=== PATIENT | female | born 1945 | race Caucasian/White ===

== ENCOUNTER 2024-08-30 06:20 | Outpatient (REF) | payer MEDICARE, SELFPAY ==
--- OUTSIDE RECORDS SUMMARY | 2024-08-30 06:37 | XMS_ITS | Encounter Summary ---
Author Organization [employer] Address [address] [facility] 7t [place] [address] Care Team Providers Care Chemical Etch Operator Name Role Phone Naida Umaña Primary Care Provider Un available Alexia Jackson Primary Care Provider Unavailabl e Inactive/Transferred Primary Care Provider Unava ilable Encounter Details Date Type Department Care Team (Latest Contact Info) Description 01/26/2021 Abstract [facility] CONVERSIONS Dental, Provider, DDS Social History Tobacco Use Types Packs/Day Years Used Date Smoking Tobacco: Never Assessed Comments Unknown Sex and Gender Information Value Date Recorded Sex Assigned at Female 02/03/2022 3:15 PM EST Legal Sex Female 5:36 PM EDT Gender Identity Female 02/03/2022 3:15 PM EST Sexual Orientation Choose not to disclose 2022 11:17 AM EDT documented as of this encounter Plan of Treatment Not on file documented as of this encounter Visit Diagnoses Not on filedocumented in this encounter Care Teams Chemical Etch Operator Relationship Specialty Start Date End Date Naida Umaña FNP PCP - General Family Medicine 02/04/22 10/17/22 Alexia Jackson PA PCP - General Family Medicine 10/18/22 05/23/23 Inactive/Transferred PCP - General 05/24/23 Jaleesa Naqvi Community Health Worker Case Management 10/15/22 documented as of this encounter
== END 2024-08-30 06:21 | disposition home or self-care (01) ==
LOC: HO.MMNH2L 06:20
PROVIDERS: Visit Provider Student in an Organized Health Care Education/Training Program
DX: Z13.89 Encounter for screening for other disorder (principal)

== ENCOUNTER 2024-09-24 06:09 | Outpatient (REF) | payer MEDICARE, SELFPAY ==
[2024-09-24 06:00] LABS: MANUAL DIFF FLAG NO
--- OUTSIDE RECORDS SUMMARY | 2024-09-24 06:11 | XMS_ITS | Clinical Summary ---
Author Organization [facility] Address [address] [address] Phone Care Team Providers Care Automotive Brake Technician Name Role Phone Unavailable Primary Care Provider Unavailabl e Social History Tobacco Use Types Packs/Day Years Used Date Smoking Tobacco: Never Assessed Education Answer Date Recorded Are you interested in more education? Not on brandon e 03/14/2024 Are you concerned about learning? Not on file 03/14/2024 No 03/14/2024 No 03/14/2024 Digital Access Answer Date Recorded No 03/14/2024 No 03/14/2024 Reliable internet access at home? Not on file 03/14/2024 Device with a working camera? Not on file Comments Unknown Sex and Gender Information Value Date Recorded Sex Assigned at Not on file Legal Sex Female 10:10 PM EDT Gender Identity Not on file Sexual Orientation Not on file Plan of Treatment Health Maintenance Due Date Last Done Comments Adult Td,Tdap Booster 1945 BLOOD PRESSURE 1945 DEPRESSION SCREENING 1955 PNEUMOCOCCAL VACCINES (50+ y ears) (1 of 1 - PCV) 05/27/1993 ZOSTER VACCINES (1 of 2) 05/27/1993 OSTEOPOROSIS SCREENING INITI AL (ONE-TIME) 05/27/2008 RSV VACCINE (1 - 1-dose 75+ series) 05/27/2018 COVID-19 VACCINE (2023-2 5 season) 2023 HEPATITIS A VACCINES Aged Out No long er eligible based on patient's age to complete this topic HIB VACCINES Aged Out No longer eligi ble based on patient's age to complete this topic MENINGOCOCCAL VACCINES (ACWY) Aged Out No longer eligible based on patient's age to complete this topic MENINGOCOCCAL VACCINES (B) Aged Out N o longer eligible based on patient's age to complete this topic Medical Devices Not on file Insurance MEDICARE PART A & [place] & B [employer] MEDIC[employer] PART A & [place] B [facility] Additional Source Comments The information contained in this document represents components of the legal health record. It is not the complete legal health record.[facility]
--- OUTSIDE RECORDS SUMMARY | 2024-09-24 06:11 | XMS_ITS | Encounter Summary ---
Author Organization [employer] Address [address] [facility] [address] [place] [address] Care Team Providers Care Data Warehouse Manager Name Role Phone Naida Umaña Primary Care [...] on filedocumented in this encounter Care Teams Data Warehouse Manager Relationship Specialty Start Date End Date Naida Umaña FNP PCP - General Family Medicine 02/04/22 10/17/22 Alexia Jackson PA PCP - General Family Medicine 10/18/22 05/23/23 Inactive/Transferred PCP - General 05/24/23 Jaleesa Naqvi Community Health Worker Case Management 10/15/22 documented as of this encounter
[2024-09-24 06:49] LABS: Hematocrit 35.5 % (37.0-47.0); Hemoglobin 11.3 g/dl (12.0-16.0); Imm Gran Abs Auto 0.12 X10*3/uL (0.00-0.03); Imm Gran Pct Auto 1.1 % (0.0-0.4); Lymphocytes Absolute Auto 1.8 X10*3/uL (1.2-4.9); Mean Corpuscular HGB Conc 31.8 g/dl (31.0-35.0); Mean Corpuscular Hemoglobin 31.2 pg (27.0-33.0); Mean Corpuscular Volume 98.1 fL (80.0-98.0); NRBC Abs Auto 0.000 X10*3/uL (0.0-0.012); NRBC Pct Auto 0.0 /100WBC (0.0-0.2); Platelet Count 221 X10*3/uL (160-400); Red Blood Count 3.62 X10*6/uL (4.20-5.50); White Blood Count 10.5 X10*3/uL (4.8-10.8)
[2024-09-24 07:24] LABS: Anion Gap 16 (12-20); Blood Urea Nitrogen 20 mg/dL (9-16); Calcium 9.2 mg/dL (8.4-10.2); Carbon Dioxide 23 mmol/L (22-29); Chloride 106 mmol/L (96-108); Estimated Glomerular Filt Rate > 60; Potassium 3.8 mmol/L (3.3-5.1); Sodium 141 mmol/L (135-145)
== END 2024-09-24 06:10 | disposition home or self-care (01) ==
LOC: HO.MMNH2L 06:09
PROVIDERS: Visit Provider Student in an Organized Health Care Education/Training Program
DX: S06.5X0A Traumatic subdural hemorrhage without loss of consciousness, initial encounter (principal)
CPT/HCPCS: 36415; 80048; 85025

== ENCOUNTER 2024-09-25 05:40 | Outpatient (REF) | payer MEDICARE, SELFPAY ==
--- OUTSIDE RECORDS SUMMARY | 2024-09-25 05:43 | XMS_ITS | Encounter Summary ---
Author Organization [employer] Address [address] [facility] [address]t [place] [address] Care Team Providers Care Mobile Homes Repairer Name Role Phone Naida Umaña Primary Care [...] on filedocumented in this encounter Care Teams Mobile Homes Repairer Relationship Specialty Start Date End Date Naida Umaña FNP PCP - General Family Medicine 02/04/22 10/17/22 Alexia Jackson PA PCP - General Family Medicine 10/18/22 05/23/23 Inactive/Transferred PCP - General 05/24/23 Jaleesa Naqvi Community Health Worker Case Management 10/15/22 documented as of this encounter
--- OUTSIDE RECORDS SUMMARY | 2024-09-25 05:43 | XMS_ITS | Clinical Summary ---
Author Organization [facility] Address [address] [address] Phone Care Team Providers Care Service Loss Control Consultant Name Role Phone Unavailable Primary Care Provider [...] [place] PART A & B [employer] MEDICARE PART A & [place] & [place] & B [facility] Additional Source Comments The information contained in this document represents components of the legal health record. It is not the complete legal health record.[facility]
[2024-09-25 07:02] LABS: Appearance Urine Clear; Glucose Urine UA >=1000 mg/dL (Negative); PH 5.5 (5.0-9.0); Specific Gravity - Urine 1.020 (1.005-1.025); UMIC TRIGGER UA YES
== END 2024-09-25 05:41 | disposition home or self-care (01) ==
LOC: HO.MMNH2L 05:40
PROVIDERS: Visit Provider Student in an Organized Health Care Education/Training Program
DX: R45.1 Restlessness and agitation (principal); Z87.440 Personal history of urinary (tract) infections; R82.90 Unspecified abnormal findings in urine
CPT/HCPCS: 81001; 81003; 87086

== ENCOUNTER 2024-10-01 06:35 | Outpatient (REF) | payer MEDICARE, SELFPAY ==
[2024-10-01 05:58] LABS: MANUAL DIFF FLAG NO
--- OUTSIDE RECORDS SUMMARY | 2024-10-01 06:38 | XMS_ITS | Clinical Summary ---
Author Organization [facility] Address [address] [address] Phone Care Team Providers Care Internet Webmaster Name Role Phone Unavailable Primary Care Provider [...] B [place] PART A & B NAME'S Online Department [employer] MEDICARE PART A & [place] & [place] & B [facility] Additional Source Comments The information contained in this document represents components of the legal health record. It is not the complete legal health record.[facility]
--- OUTSIDE RECORDS SUMMARY | 2024-10-01 06:38 | XMS_ITS | Encounter Summary ---
Author Organization [employer] Address [address] [facility] 7t [place] [address] Care Team Providers Care Windows Desktop Support Name Role Phone Naida Umaña Primary Care [...] on filedocumented in this encounter Care Teams Windows Desktop Support Relationship Specialty Start Date End Date Naida Umaña FNP PCP - General Family Medicine 02/04/22 10/17/22 Alexia Jackson PA PCP - General Family Medicine 10/18/22 05/23/23 Inactive/Transferred PCP - General 05/24/23 Jaleesa Naqvi Community Health Worker Case Management 10/15/22 documented as of this encounter
[2024-10-01 06:54] LABS: Hematocrit 35.2 % (37.0-47.0); Hemoglobin 11.2 g/dl (12.0-16.0); Imm Gran Abs Auto 0.13 X10*3/uL (0.00-0.03); Imm Gran Pct Auto 1.2 % (0.0-0.4); Lymphocytes Absolute Auto 1.9 X10*3/uL (1.2-4.9); Mean Corpuscular HGB Conc 31.8 g/dl (31.0-35.0); Mean Corpuscular Hemoglobin 30.9 pg (27.0-33.0); Mean Corpuscular Volume 97.0 fL (80.0-98.0); NRBC Abs Auto 0.000 X10*3/uL (0.0-0.012); NRBC Pct Auto 0.0 /100WBC (0.0-0.2); Platelet Count 274 X10*3/uL (160-400); Red Blood Count 3.63 X10*6/uL (4.20-5.50); White Blood Count 11.2 X10*3/uL (4.8-10.8)
[2024-10-01 06:56] LABS: Anion Gap 16 (12-20); Blood Urea Nitrogen 9 mg/dL (9-16); Calcium 8.8 mg/dL (8.4-10.2); Carbon Dioxide 22 mmol/L (22-29); Chloride 102 mmol/L (96-108); Estimated Glomerular Filt Rate > 60; Potassium 4.4 mmol/L (3.3-5.1); Sodium 136 mmol/L (135-145)
== END 2024-10-01 06:36 | disposition home or self-care (01) ==
LOC: HO.MMNH2L 06:35
PROVIDERS: Visit Provider Student in an Organized Health Care Education/Training Program
DX: Z02.2 Encounter for examination for admission to residential institution (principal); S06.5XAD Traumatic subdural hemorrhage with loss of consciousness status unknown, subsequent encounter
CPT/HCPCS: 36415; 80048; 85025

== ENCOUNTER 2024-10-03 07:04 | Outpatient (REF) | payer MEDICARE, SELFPAY ==
--- OUTSIDE RECORDS SUMMARY | 2024-10-03 07:06 | XMS_ITS | Clinical Summary ---
Author Organization [facility] Address [address] [address] Phone Care Team Providers Care Fixed Interest Dealer Name Role Phone Unavailable Primary Care Provider [...] B [place] PART [place] & B [employer] MEDIC[employer] PART A & [place] & [place] & [place] & B [facility] Additional Source Comments The information contained in this document represents components of the legal health record. It is not the complete legal health record.[facility]
--- OUTSIDE RECORDS SUMMARY | 2024-10-03 07:06 | XMS_ITS | Encounter Summary ---
Author Organization [employer] Address [address] [facility] 7t [place] [address] Care Team Providers Care [place] House Worker Name Role Phone Naida Umaña Primary Care [...] on filedocumented in this encounter Care Teams [place] House Worker Relationship Specialty Start Date End Date Naida Umaña FNP PCP - General Family Medicine 02/04/22 10/17/22 Alexia Jackson PA PCP - General Family Medicine 10/18/22 05/23/23 Inactive/Transferred PCP - General 05/24/23 Jaleesa Naqvi Community Health Worker Case Management 10/15/22 documented as of this encounter
--- OUTSIDE RECORDS SUMMARY | 2024-10-03 07:06 | XMS_ITS | Encounter Summary ---
Author Organization [employer] Address [address] [facility] 7t [place] [address] Care Team Providers Care Information Technology Internship Name Role Phone Naida Umaña Primary Care Provider Un available Alexia Jackson Primary Care Provider Unavailabl e Inactive/Transferred Primary Care Provider Unava ilable Encounter Details Date Type Department Care Team (Latest Contact Info) Description 03/06/2020 Abstract [facility] CONVERSIONS Dental, Provider, DDS Social [...] on filedocumented in this encounter Care Teams Information Technology Internship Relationship Specialty Start Date End Date Naida Umaña FNP PCP - General Family Medicine 02/04/22 10/17/22 Alexia Jackson PA PCP - General Family Medicine 10/18/22 05/23/23 Inactive/Transferred PCP - General 05/24/23 Jaleesa Naqvi Community Health Worker Case Management 10/15/22 documented as of this encounter
--- OUTSIDE RECORDS SUMMARY | 2024-10-03 07:06 | XMS_ITS | Encounter Summary ---
Author Organization [employer] Address [address] [facility] 7t [place] [address] Care Team Providers Care Sheriff Officer Name Role Phone Naida Umaña Primary Care Provider Un available Alexia Jackson Primary Care Provider Unavailabl e Inactive/Transferred Primary Care Provider Unava ilable Encounter Details Date Type Department Care Team (Latest Contact Info) Description 05/01/2018 [facility] CONVERSIONS Dental, Provider, DDS Social [...] on filedocumented in this encounter Care Teams Sheriff Officer Relationship Specialty Start Date End Date Naida Umaña FNP PCP - General Family Medicine 02/04/22 10/17/22 Alexia Jackson PA PCP - General Family Medicine 10/18/22 05/23/23 Inactive/Transferred PCP - General 05/24/23 Jaleesa Naqvi Community Health Worker Case Management 10/15/22 documented as of this encounter
--- OUTSIDE RECORDS SUMMARY | 2024-10-03 07:06 | XMS_ITS | Encounter Summary ---
Author Organization [employer] Address [address] [facility] 7t [place] [address] Care Team Providers Care District Manager Name Role Phone Naida Umaña Primary Care Provider Un available Alexia Jackson Primary Care Provider Unavailabl e Inactive/Transferred Primary Care Provider Unava ilable Encounter Details Date Type Department Care Team (Latest Contact Info) Description 01/08/2019 Abstract [facility] CONVERSIONS Dental, Provider, DDS Social [...] on filedocumented in this encounter Care Teams District Manager Relationship Specialty Start Date End Date Naida Umaña FNP PCP - General Family Medicine 02/04/22 10/17/22 Alexia Jackson PA PCP - General Family Medicine 10/18/22 05/23/23 Inactive/Transferred PCP - General 05/24/23 Jaleesa Naqvi Community Health Worker Case Management 10/15/22 documented as of this encounter
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
[2024-10-03 08:17] LABS: Appearance Urine Cloudy; Glucose Urine UA >=1000 mg/dL (Negative); PH 5.0 (5.0-9.0); Specific Gravity - Urine >= 1.030 (1.005-1.025); UMIC TRIGGER UA YES
== END 2024-10-03 07:05 | disposition home or self-care (01) ==
LOC: HO.MMNH2L 07:04
PROVIDERS: Visit Provider Physician Assistant Medical
DX: S02.19XD Other fracture of base of skull, subsequent encounter for fracture with routine healing (principal)
CPT/HCPCS: 81001; 81003; 87086; 87088; 87186

== ENCOUNTER 2024-10-09 06:15 | Outpatient (REF) | payer MEDICARE, SELFPAY ==
[2024-10-09 06:09] LABS: MANUAL DIFF FLAG NO
--- OUTSIDE RECORDS SUMMARY | 2024-10-09 06:18 | XMS_ITS | Encounter Summary ---
Author Organization [employer] Address [address] [facility] 7t [place] [address] Care Team Providers Care Counter Former Name Role Phone Naida Umaña Primary Care [...] on filedocumented in this encounter Care Teams Counter Former Relationship Specialty Start Date End Date Naida Umaña FNP PCP - General Family Medicine 02/04/22 10/17/22 Alexia Jackson PA PCP - General Family Medicine 10/18/22 05/23/23 Inactive/Transferred PCP - General 05/24/23 Jaleesa Naqvi Community Health Worker Case Management 10/15/22 documented as of this encounter
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
--- OUTSIDE RECORDS SUMMARY | 2024-10-09 06:18 | XMS_ITS | Encounter Summary ---
Author Organization [employer] Address [address] [facility] 7t [place] [address] Care Team Providers Care Senior It Business Analyst Name Role Phone Naida Umaña Primary Care [...] on filedocumented in this encounter Care Teams Senior It Business Analyst Relationship Specialty Start Date End Date Naida Umaña FNP PCP - General Family Medicine 02/04/22 10/17/22 Alexia Jackson PA PCP - General Family Medicine 10/18/22 05/23/23 Inactive/Transferred PCP - General 05/24/23 Jaleesa Naqvi Community Health Worker Case Management 10/15/22 documented as of this encounter
--- OUTSIDE RECORDS SUMMARY | 2024-10-09 06:18 | XMS_ITS | Encounter Summary ---
Author Organization [employer] Address [address] [facility] [address] [place] [address] Care Team Providers Care Machine Brush Maker Name Role Phone aNida Umaña Primary Care Provider Un available Alexia [...] on filedocumented in this encounter Care Teams Machine Brush Maker Relationship Specialty Start Date End Date Naida Umaña FNP PCP - General Family Medicine 02/04/22 10/17/22 Alexia Jackson PA PCP - General Family Medicine 10/18/22 05/23/23 Inactive/Transferred PCP - General 05/24/23 Jaleesa Naqvi Community Health Worker Case Management 10/15/22 documented as of this encounter
--- OUTSIDE RECORDS SUMMARY | 2024-10-09 06:18 | XMS_ITS | Clinical Summary ---
Author Organization [facility] Address [address] [address] Phone Care Team Providers Care Search Planner Name Role Phone Unavailable Primary Care Provider [...] VACCINE (1 - 1-dose 75+ series) 05/27/2018 INFLUENZA VACCINE (#1) 2024 COVID-19 VACCINE (2023-2 5 season) 2024 HEPATITIS A VACCINES Aged Out No long [...] file Insurance MEDICARE PART A & B [employer] MED[facility] PART A & [place] & [place] PART A & B [employer] MED[facility] PART A & [place] PART A & B [employer] MEDICARE PART A & B [employer] MEDICARE PART A & B [facility] Additional Source Comments The information contained in this document represents components of the legal health record. It is not the complete legal health record.[facility]
--- OUTSIDE RECORDS SUMMARY | 2024-10-09 06:18 | XMS_ITS | Encounter Summary ---
Author Organization [employer] Address [address] [facility] [address] [place] [address] Care Team Providers Care Fleet Salesperson Name Role Phone Naida Umaña Primary Care [...] on filedocumented in this encounter Care Teams Fleet Salesperson Relationship Specialty Start Date End Date Naida Umaña FNP PCP - General Family Medicine 02/04/22 10/17/22 Alexia Jackson PA PCP - General Family Medicine 10/18/22 05/23/23 Inactive/Transferred PCP - General 05/24/23 Jaleesa Naqvi Community Health Worker Case Management 10/15/22 documented as of this encounter
[2024-10-09 06:29] LABS: Hematocrit 35.2 % (37.0-47.0); Hemoglobin 11.1 g/dl (12.0-16.0); Imm Gran Abs Auto 0.06 X10*3/uL (0.00-0.03); Imm Gran Pct Auto 0.7 % (0.0-0.4); Lymphocytes Absolute Auto 2.0 X10*3/uL (1.2-4.9); Mean Corpuscular HGB Conc 31.5 g/dl (31.0-35.0); Mean Corpuscular Hemoglobin 30.2 pg (27.0-33.0); Mean Corpuscular Volume 95.9 fL (80.0-98.0); NRBC Abs Auto 0.000 X10*3/uL (0.0-0.012); NRBC Pct Auto 0.0 /100WBC (0.0-0.2); Platelet Count 220 X10*3/uL (160-400); Red Blood Count 3.67 X10*6/uL (4.20-5.50); White Blood Count 8.5 X10*3/uL (4.8-10.8)
[2024-10-09 06:52] LABS: Anion Gap 14 (12-20); Blood Urea Nitrogen 13 mg/dL (9-16); Calcium 8.9 mg/dL (8.4-10.2); Carbon Dioxide 25 mmol/L (22-29); Chloride 103 mmol/L (96-108); Estimated Glomerular Filt Rate > 60; Potassium 4.0 mmol/L (3.3-5.1); Sodium 138 mmol/L (135-145)
== END 2024-10-09 06:16 | disposition home or self-care (01) ==
LOC: HO.MMNH2L 06:15
PROVIDERS: Visit Provider Student in an Organized Health Care Education/Training Program
DX: S06.5X0A Traumatic subdural hemorrhage without loss of consciousness, initial encounter (principal)
CPT/HCPCS: 36415; 80048; 85025

== ENCOUNTER 2024-10-15 06:11 | Outpatient (REF) | payer MEDICARE, SELFPAY ==
[2024-10-15 05:57] LABS: MANUAL DIFF FLAG NO
--- OUTSIDE RECORDS SUMMARY | 2024-10-15 06:18 | XMS_ITS | Encounter Summary ---
Author Organization [employer] Address [address] [facility] 7[address] [place] [address] Care Team Providers Care Misdraw Hand Name Role Phone Naida Umaña Primary Care [...] on filedocumented in this encounter Care Teams Misdraw Hand Relationship Specialty Start Date End Date Naida Umaña FNP PCP - General Family Medicine 02/04/22 10/17/22 Alexia Jackson PA PCP - General Family Medicine 10/18/22 05/23/23 Inactive/Transferred PCP - General 05/24/23 Jaleesa Naqvi Community Health Worker Case Management 10/15/22 documented as of this encounter
--- OUTSIDE RECORDS SUMMARY | 2024-10-15 06:18 | XMS_ITS | Encounter Summary ---
Author Organization [employer] Address [address] [facility] [address] [place] [address] Care Team Providers Care Yard Stocker Name Role Phone Naida Umaña Primary Care [...] on filedocumented in this encounter Care Teams Yard Stocker Relationship Specialty Start Date End Date Naida Umaña FNP PCP - General Family Medicine 02/04/22 10/17/22 Alexia Jackson PA PCP - General Family Medicine 10/18/22 05/23/23 Inactive/Transferred PCP - General 05/24/23 Jaleesa Naqvi Community Health Worker Case Management 10/15/22 documented as of this encounter
--- OUTSIDE RECORDS SUMMARY | 2024-10-15 06:18 | XMS_ITS | Clinical Summary ---
Author Organization [facility] Address [address] [address] Phone Care Team Providers Care Insurance Marketing Rep Name Role Phone Unavailable Primary Care Provider [...] file Insurance MEDICARE PART A & B [employer] MED[employer] PART A & [place] & B [employer] MEDICARE PART A & [place] PART A & B [employer] MEDICARE PART A & B [employer] MEDICARE PART A & B [facility] Additional Source Comments The information contained in this document represents components of the legal health record. It is not the complete legal health record.[facility]
--- OUTSIDE RECORDS SUMMARY | 2024-10-15 06:18 | XMS_ITS | Encounter Summary ---
Author Organization [employer] Address [address] [facility] 7t [place] [address] Care Team Providers Care Stove Fitter Name Role Phone Naida Umaña Primary Care [...] on filedocumented in this encounter Care Teams Stove Fitter Relationship Specialty Start Date End Date Naida Umaña FNP PCP - General Family Medicine 02/04/22 10/17/22 Alexia Jackson PA PCP - General Family Medicine 10/18/22 05/23/23 Inactive/Transferred PCP - General 05/24/23 Jaleesa Naqvi Community Health Worker Case Management 10/15/22 documented as of this encounter
--- OUTSIDE RECORDS SUMMARY | 2024-10-15 06:18 | XMS_ITS | Clinical Summary ---
Author Organization [employer] Address 75 [facility] 7t [place] [address] Care Team Providers Care Multi Operation Machine Operator Name Role Phone Inactive/Transferred Primary Care Provider Unava ilable Allergies No known active allergies Medications Calcium-Vitamin D-Vitamin K (Calcium + D) 500-1000-40 MG-UNT-MCG chewable tablet Orally Acti ve nystatin (Mycostatin) 282081 UNIT/GM powderIndications: Intertrigo apply 1 application Externally Twice a day for 14 days 30 g 2 02/05/20 22 Active glucose blood test stripIndications:T ype 2 diabetes mellitus with hyperglycemia, unspecified whether shelter insulin use ([facility]) 1 each by Other route 2 [...] hyperglycemia, without long-term current use of insulin ([facility]) TAKE 1 TABLET BY MOUTH TWICE [...] was a big deal. I contacted the police service technician who was not available to assist us if there were any further incidents but he was not able to come and asked me to call the state police. I called dispatch and they sent a real estate administrator to our facility. HR was able to [...] & Plan (11/02/2022 12:06 PM EDT): Under time clock repairer care of her brother and sister in law at their home for >20y. Pt is unable to care for herself at all. She does have her own bedroom and bathroom, side by side. She attends an adult day care [id number] [id number]. Her ELMA states the pt has been [...] at appt today. The brother and primary ceramist would not discuss her medications with myself [...] Moderna Covid-19 Vaccine 12+ 01/08/2021,04/10/19 21,03/12/2020 Novel [id number], all formulations 03/19/2009 PPD Test 12/19/2015,05/14/2009 Pfizer [...] 07/02/19 23, 03/06/2020, 01/08/2019, Additional history exists SDOH Screening 10/22/2023 10/21/2022 COVID-19 Vaccine ( season) 2024 02/04/2022, 01/08/2021, 04/09/2020, Additional history exists Influenza Vaccine (#1) 2024 2, 12/07/2019, 12/03/2017, [...] 2 diabetes mellitus with hyperglycemia, unspecified whether ocean transportation intermediary insulin use (CMS/HCC) Other specified diabetes mellitus with unspecified complications ([facility]) ALBUMIN, RANDOM URINE W/CREATININE Routine 10/16/2021 [...] specimen / Unknown 06/07/2022 4:25 PM EDT [employer] [facility] POINT OF CARE TEST ENTER/ EDIT ORDERABLES Final Result * -Microalbumin, Urine (10/16/2021 8:46 AM EDT) Microalbumin Urine <12.0 (<20) MG/L [facility] Comment: The urine microalbumin test is designed to monitor renal function. When screening for Bence Acosta proteinuria, urine electrophoresis is recommended. Microalb/Creat Ratio Unable to calculate (0-20) MG/GM [facility] Creatinine, Urine 66.0 MG/DL [facility] 10/16/2021 8:46 AM EDT [email or web address] [facility] LAB URINE ORDERABLES Ethel l Result [facility] [address] * Lipid Panel, Standard (10/15/2021) Triglycerides 101 40 - 160 mg/dL Cholesterol 136 0 - 200 mg/dL HDL Cholesterol 53 35 - 70 mg/dL LDL Cholesterol 63 mg/dL Blood Venous blood specimen / Unknown [facility] Provider LAB BLOOD ORDERABLES Ethel l Result from Last 3 Months or Most Recently Relevant to Health Maintenance Insurance MEDICARE [facility] STANDARD DENTAL-[facility] MEDICAID STAND ADULT Care Teams Multi Operation Machine Operator Relationship Specialty Start Date End Date Inactive/Transferred PCP - General 05/24/23 Jaleesa Naqvi Community Health Worker Case Management 10/15/22
--- OUTSIDE RECORDS SUMMARY | 2024-10-15 06:18 | XMS_ITS | Encounter Summary ---
Author Organization [employer] Address [address] [facility] [address]t [place] [address] Care Team Providers Care Indirect Sales Representative Name Role Phone Naida Umaña Primary Care [...] on filedocumented in this encounter Care Teams Indirect Sales Representative Relationship Specialty Start Date End Date Naida Umaña FNP PCP - General Family Medicine 02/04/22 10/17/22 Alexia Jackson PA PCP - General Family Medicine 10/18/22 05/23/23 Inactive/Transferred PCP - General 05/24/23 Jaleesa Naqvi Community Health Worker Case Management 10/15/22 documented as of this encounter
[2024-10-15 06:55] LABS: Anion Gap 16 (12-20); Blood Urea Nitrogen 16 mg/dL (9-16); Calcium 9.2 mg/dL (8.4-10.2); Carbon Dioxide 26 mmol/L (22-29); Chloride 105 mmol/L (96-108); Estimated Glomerular Filt Rate > 60; Potassium 4.0 mmol/L (3.3-5.1); Sodium 143 mmol/L (135-145)
[2024-10-15 06:56] LABS: Hematocrit 34.9 % (37.0-47.0); Hemoglobin 11.2 g/dl (12.0-16.0); Imm Gran Abs Auto 0.10 X10*3/uL (0.00-0.03); Imm Gran Pct Auto 0.8 % (0.0-0.4); Lymphocytes Absolute Auto 1.9 X10*3/uL (1.2-4.9); Mean Corpuscular HGB Conc 32.1 g/dl (31.0-35.0); Mean Corpuscular Hemoglobin 30.7 pg (27.0-33.0); Mean Corpuscular Volume 95.6 fL (80.0-98.0); NRBC Abs Auto 0.000 X10*3/uL (0.0-0.012); NRBC Pct Auto 0.0 /100WBC (0.0-0.2); Platelet Count 265 X10*3/uL (160-400); Red Blood Count 3.65 X10*6/uL (4.20-5.50); White Blood Count 12.9 X10*3/uL (4.8-10.8)
== END 2024-10-15 06:12 | disposition home or self-care (01) ==
LOC: HO.MMNH2L 06:11
PROVIDERS: Visit Provider Student in an Organized Health Care Education/Training Program
DX: S06.5X0A Traumatic subdural hemorrhage without loss of consciousness, initial encounter (principal)
CPT/HCPCS: 36415; 80048; 85025

== ENCOUNTER 2024-10-22 05:44 | Outpatient (REF) | payer MEDICARE, SELFPAY ==
[2024-10-22 05:39] LABS: MANUAL DIFF FLAG NO
--- OUTSIDE RECORDS SUMMARY | 2024-10-22 05:46 | XMS_ITS | Encounter Summary ---
Author Organization [email or web address] Address [address] [facility] 7t [place] [address] Care Team Providers Care Childcare Attendant Name Role Phone Naida Umaña Primary Care [...] on filedocumented in this encounter Care Teams Childcare Attendant Relationship Specialty Start Date End Date Naida Umaña FNP PCP - General Family Medicine 02/04/22 10/17/22 Alexia Jackson PA PCP - General Family Medicine 10/18/22 05/23/23 Inactive/Transferred PCP - General 05/24/23 Jaleesa Naqvi Community Health Worker Case Management 10/15/22 documented as of this encounter
--- OUTSIDE RECORDS SUMMARY | 2024-10-22 05:46 | XMS_ITS | Encounter Summary ---
Author Organization [employer] Address [address] [facility] [address] [place] [address] Care Team Providers Care Direct Marketing Manager Name Role Phone Naida Umaña Primary [...] on filedocumented in this encounter Care Teams Direct Marketing Manager Relationship Specialty Start Date End Date Naida Umaña FNP PCP - General Family Medicine 02/04/22 10/17/22 Alexia Jackson PA PCP - General Family Medicine 10/18/22 05/23/23 Inactive/Transferred PCP - General 05/24/23 Jaleesa Naqvi Community Health Worker Case Management 10/15/22 documented as of this encounter
--- OUTSIDE RECORDS SUMMARY | 2024-10-22 05:46 | XMS_ITS | Encounter Summary ---
Author Organization [employer] Address [address] [facility] 7t [place] [address] Care Team Providers Care Mowing Machine Operator Name Role Phone Naida Umaña Primary [...] on filedocumented in this encounter Care Teams Mowing Machine Operator Relationship Specialty Start Date End Date Naida Umaña FNP PCP - General Family Medicine 02/04/22 10/17/22 Alexia Jackson PA PCP - General Family Medicine 10/18/22 05/23/23 Inactive/Transferred PCP - General 05/24/23 Jaleesa Naqvi Community Health Worker Case Management 10/15/22 documented as of this encounter
--- OUTSIDE RECORDS SUMMARY | 2024-10-22 05:46 | XMS_ITS | Clinical Summary ---
Author Organization [facility] Address [address] [address] Phone Care Team Providers Care Diabetes Manager Name Role Phone Unavailable Primary Care Provider [...] file Insurance MEDICARE PART A & B [employer] MEDICARE PART A & B [place] PART A & B [employer] MEDICARE PART A & [place] MED[place] PART A & B [employer] MEDICARE PART A & B [employer] MEDICARE PART A & B [facility] Additional Source Comments The information contained in this document represents components of the legal health record. It is not the complete legal health record.[facility]
--- OUTSIDE RECORDS SUMMARY | 2024-10-22 05:46 | XMS_ITS | Encounter Summary ---
Author Organization [employer] Address [address] [facility] 7t [place] [address] Care Team Providers Care Retail Route Supervisor Name Role Phone Naida Umaña Primary Care [...] on filedocumented in this encounter Care Teams Retail Route Supervisor Relationship Specialty Start Date End Date Naida Umaña FNP PCP - General Family Medicine 02/04/22 10/17/22 Alexia Jackson PA PCP - General Family Medicine 10/18/22 05/23/23 Inactive/Transferred PCP - General 05/24/23 Jaleesa Naqvi Community Health Worker Case Management 10/15/22 documented as of this encounter
--- OUTSIDE RECORDS SUMMARY | 2024-10-22 05:46 | XMS_ITS | Clinical Summary ---
Author Organization [employer] Address [address] [facility] 7t [place] [address] Care Team Providers Care Exhaust And Muffler Repairer Name Role Phone Inactive/Transferred Primary Care Provider Unava ilable Allergies No known active allergies Medications Calcium-Vitamin D-Vitamin K (Calcium + D) 500-1000-40 MG-UNT-MCG chewable tablet Orally Acti ve nystatin (Mycostatin) 798976 UNIT/GM powderIndications: Intertrigo apply 1 application Externally Twice a day for 14 days 30 g 2 02/05/20 22 Active glucose blood test stripIndications:T ype 2 diabetes mellitus with hyperglycemia, unspecified whether director of culture insulin use ([facility]) 1 each by Other route [...] hyperglycemia, without long-term current use of insulin ([facility]) TAKE 1 TABLET BY MOUTH [...] was a big deal. I contacted the chief executive or managing director who was not available to assist us if there were any further incidents but he was not able to come and asked me to call the state police. I called dispatch and they sent a manager estate to our facility. HR was able to [...] & Plan (11/02/2022 12:06 PM EDT): Under signal timer care of her brother and sister in law at their home for >20y. Pt is unable to care for herself at all. She does have her own bedroom and bathroom, side by side. She attends an adult day care [id number] [id number]. Her ELMA states the pt has been [...] at appt today. The brother and primary powertrain control systems engineer would not discuss her medications with myself [...] Moderna Covid-19 Vaccine 12+ 01/08/2021,04/10/19 21,03/12/2020 Novel [id number]-[id number], all formulations 03/19/2009 PPD Test 12/19/2015,05/14/2009 Pfizer [...] 2 diabetes mellitus with hyperglycemia, unspecified whether nursing home insulin use (CMS/HCC) Other specified diabetes mellitus with unspecified complications ([facility]) ALBUMIN, RANDOM URINE W/CREATININE Routine [...] specimen / Unknown 06/07/2022 4:25 PM EDT [employer] [facility] POINT OF CARE TEST ENTER/ EDIT [...] [facility] 10/16/2021 8:46 AM EDT [employer] [facility] LAB URINE ORDERABLES Ethel l Result [facility] [address] * Lipid Panel, Standard (10/15/2021) Triglycerides 101 40 - 160 mg/dL Cholesterol 136 0 - 200 mg/dL HDL Cholesterol 53 35 - 70 mg/dL LDL Cholesterol 63 mg/dL Blood Venous blood specimen / Unknown [facility] Provider LAB BLOOD ORDERABLES Ethel l Result from Last 3 Months or Most Recently Relevant to Health Maintenance Insurance MEDICARE [facility] STANDARD DENTAL-[facility] MEDICAID STAND ADULT Care Teams Exhaust And Muffler Repairer Relationship Specialty Start Date End Date Inactive/Transferred PCP - General 05/24/23 Jaleesa Naqvi Community Health Worker Case Management 10/15/22
[2024-10-22 06:28] LABS: Hematocrit 36.6 % (37.0-47.0); Hemoglobin 11.7 g/dl (12.0-16.0); Imm Gran Abs Auto 0.12 X10*3/uL (0.00-0.03); Imm Gran Pct Auto 1.0 % (0.0-0.4); Lymphocytes Absolute Auto 1.8 X10*3/uL (1.2-4.9); Mean Corpuscular HGB Conc 32.0 g/dl (31.0-35.0); Mean Corpuscular Hemoglobin 30.2 pg (27.0-33.0); Mean Corpuscular Volume 94.6 fL (80.0-98.0); NRBC Abs Auto 0.000 X10*3/uL (0.0-0.012); NRBC Pct Auto 0.0 /100WBC (0.0-0.2); Platelet Count 327 X10*3/uL (160-400); Red Blood Count 3.87 X10*6/uL (4.20-5.50); White Blood Count 12.4 X10*3/uL (4.8-10.8)
[2024-10-22 07:00] LABS: Anion Gap 13 (12-20); Blood Urea Nitrogen 13 mg/dL (9-16); Calcium 8.8 mg/dL (8.4-10.2); Carbon Dioxide 29 mmol/L (22-29); Chloride 99 mmol/L (96-108); Estimated Glomerular Filt Rate > 60; Potassium 3.5 mmol/L (3.3-5.1); Sodium 137 mmol/L (135-145)
== END 2024-10-22 05:45 | disposition home or self-care (01) ==
LOC: HO.MMNH2L 05:44
PROVIDERS: Visit Provider Student in an Organized Health Care Education/Training Program
DX: S06.5X0A Traumatic subdural hemorrhage without loss of consciousness, initial encounter (principal)
CPT/HCPCS: 36415; 80048; 85025

== ENCOUNTER 2024-10-29 07:05 | Outpatient (REF) | payer MEDICARE, SELFPAY ==
--- OUTSIDE RECORDS SUMMARY | 2024-10-29 07:07 | XMS_ITS | Encounter Summary ---
Author Organization [employer] Address [address] [facility] 7t [place] [address] Care Team Providers Care Background Check Coordinator Name Role Phone Naida Umaña Primary Care Provider Un available Alxeia Jackson Primary Care Provider Unavailabl e Inactive/Transferred [...] on filedocumented in this encounter Care Teams Background Check Coordinator Relationship Specialty Start Date End Date Naida Umaña FNP PCP - General Family Medicine 02/04/22 10/17/22 Alexia Jackson PA PCP - General Family Medicine 10/18/22 05/23/23 Inactive/Transferred PCP - General 05/24/23 Jaleesa Naqvi Community Health Worker Case Management 10/15/22 documented as of this encounter
--- OUTSIDE RECORDS SUMMARY | 2024-10-29 07:07 | XMS_ITS | Encounter Summary ---
Author Organization [employer] Address [address] [facility] 7t [place] [address] Care Team Providers Care Tumbler Operator Name Role Phone Naida Umaña Primary [...] on filedocumented in this encounter Care Teams Tumbler Operator Relationship Specialty Start Date End Date Naida Umaña FNP PCP - General Family Medicine 02/04/22 10/17/22 Alexia Jackson PA PCP - General Family Medicine 10/18/22 05/23/23 Inactive/Transferred PCP - General 05/24/23 Jaleesa Naqvi Community Health Worker Case Management 10/15/22 documented as of this encounter
--- OUTSIDE RECORDS SUMMARY | 2024-10-29 07:07 | XMS_ITS | Encounter Summary ---
Author Organization [employer] Address [address] [facility] 7t [place] [address] Care Team Providers Care Outside Rigger Name Role Phone Naida Umaña Primary Care [...] on filedocumented in this encounter Care Teams Outside Rigger Relationship Specialty Start Date End Date Naida Umaña FNP PCP - General Family Medicine 02/04/22 10/17/22 Alexia Jackson PA PCP - General Family Medicine 10/18/22 05/23/23 Inactive/Transferred PCP - General 05/24/23 Jaleesa Naqvi Community Health Worker Case Management 10/15/22 documented as of this encounter
--- OUTSIDE RECORDS SUMMARY | 2024-10-29 07:07 | XMS_ITS | Clinical Summary ---
Author Organization [facility] Address [address] [address] Phone Care Team Providers Care Technology Sales Consultant Name Role Phone Unavailable Primary Care [...] file Insurance MEDICARE PART A & B [email or web address] MEDICARE PART A & B [place] MED[place] PART A & [place] & [place] MED[place]ARE PART A & B [email or web address] MEDICARE PART A & B [place] MEDICARE PART A & B Member Subscriber Plan / Payer ( fective 1982-Present) Name:Anjelica Carrero Member ID:[id number] Relation to Subscriber:Self Name:Anjelica Carrero Subscriber ID:[id number] Payer ID:[id number] Group ID:Not on file Type:Medicare Address: [employer] [address] [place] [phone] [email or web address] MEDICARE PART A & B [email or web address] MEDICARE PART A & B [facility] Additional Source Comments The information contained in this document represents components of the legal health record. It is not the complete legal health record.[facility]
--- OUTSIDE RECORDS SUMMARY | 2024-10-29 07:07 | XMS_ITS | Encounter Summary ---
Author Organization [employer] Address [address] [facility] 7t [place] [address] Care Team Providers Care Apartment Leasing Specialist Name Role Phone Naida Umaña Primary Care [...] on filedocumented in this encounter Care Teams Apartment Leasing Specialist Relationship Specialty Start Date End Date Naida Umaña FNP PCP - General Family Medicine 02/04/22 10/17/22 Alexia Jackson PA PCP - General Family Medicine 10/18/22 05/23/23 Inactive/Transferred PCP - General 05/24/23 Jaleesa Naqvi Community Health Worker Case Management 10/15/22 documented as of this encounter
--- OUTSIDE RECORDS SUMMARY | 2024-10-29 07:07 | XMS_ITS | Clinical Summary ---
Author Organization [employer] Address [address] [facility] [address]t [place] [address] Care Team Providers Care Cycle Repairer Name Role Phone Inactive/Transferred Primary Care Provider Unava ilable Allergies No known active allergies Medications Calcium-Vitamin D-Vitamin K (Calcium + D) 500-1000-40 MG-UNT-MCG chewable tablet Orally Acti ve nystatin (Mycostatin) 229006 UNIT/GM powderIndications: Intertrigo apply 1 application Externally Twice a day for 14 days 30 g 2 02/05/20 22 Active glucose blood test stripIndications:T ype 2 diabetes mellitus with hyperglycemia, unspecified whether manager intermediate insulin use ([facility]) 1 each by Other route 2 [...] hyperglycemia, without long-term current use of insulin ([facility]) TAKE 1 TABLET BY MOUTH TWICE [...] a big deal. I contacted the police cadet who was not available to assist us if there were any further incidents but he was not able to come and asked me to call the state police. I called dispatch and they sent a estate attorney to our facility. HR was able to [...] & Plan (11/02/2022 12:06 PM EDT): Under methods time analyst care of her brother and sister in law at their home for >20y. Pt is unable to care for herself at all. She does have her own bedroom and bathroom, side by side. She attends an adult day care M-F [phone]. Her ELMA states the pt has been [...] at appt today. The brother and primary low pressure boiler tender would not discuss her medications with myself [...] Moderna Covid-19 Vaccine 12+ 01/08/2021,04/10/19 21,03/12/2020 Novel Vmucqbxwa-[id number], all formulations 03/19/2009 PPD Test 12/19/2015,05/14/2009 Pfizer [...] 2 diabetes mellitus with hyperglycemia, unspecified whether prison insulin use (CMS/HCC) Other specified diabetes mellitus with unspecified complications ([facility]) ALBUMIN, RANDOM URINE W/CREATININE Routine 10/16/2021 [...] specimen / Unknown 06/07/2022 4:25 PM EDT [facility] POINT OF CARE TEST ENTER/ EDIT ORDERABLES Final Result * -Microalbumin, Urine (10/16/2021 8:46 AM EDT) Microalbumin Urine <12.0 (<20) MG/L [facility] Comment: The urine microalbumin test is designed to monitor renal function. When screening for Bence Acosta proteinuria, urine electrophoresis is recommended. Microalb/Creat Ratio Unable to calculate (0-20) MG/GM [facility] Creatinine, Urine 66.0 MG/DL [facility] 10/16/2021 8:46 AM EDT [facility] LAB URINE ORDERABLES Ethel l Result [facility] [address] * Lipid Panel, Standard (10/15/2021) Triglycerides 101 40 - 160 mg/dL Cholesterol 136 0 - 200 mg/dL HDL Cholesterol 53 35 - 70 mg/dL LDL Cholesterol 63 mg/dL Blood Venous blood specimen / Unknown [facility] Provider LAB BLOOD ORDERABLES Ethel l Result from Last 3 Months or Most Recently Relevant to Health Maintenance Insurance MEDICARE [facility] STANDARD DENTAL-[facility] MEDICAID STAND ADULT Care Teams Cycle Repairer Relationship Specialty Start Date End Date Inactive/Transferred PCP - General 05/24/23 Jaleesa Naqvi Community Health Worker Case Management 10/15/22
[2024-10-29 07:37] LABS: Hematocrit 35.6 % (37.0-47.0); Hemoglobin 11.2 g/dl (12.0-16.0); Imm Gran Abs Auto 0.10 X10*3/uL (0.00-0.03); Imm Gran Pct Auto 0.8 % (0.0-0.4); Lymphocytes Absolute Auto 1.8 X10*3/uL (1.2-4.9); MANUAL DIFF FLAG SCAN; Mean Corpuscular HGB Conc 31.5 g/dl (31.0-35.0); Mean Corpuscular Hemoglobin 30.4 pg (27.0-33.0); Mean Corpuscular Volume 96.7 fL (80.0-98.0); NRBC Abs Auto 0.000 X10*3/uL (0.0-0.012); NRBC Pct Auto 0.0 /100WBC (0.0-0.2); PLT CLUMP 1; Red Blood Count 3.68 X10*6/uL (4.20-5.50); SCAN SMEAR FLAG 1
[2024-10-29 07:49] LABS: Anion Gap 23 (12-20); Blood Urea Nitrogen 52 mg/dL (9-16); Calcium 10.4 mg/dL (8.4-10.2); Carbon Dioxide 20 mmol/L (22-29); Chloride 105 mmol/L (96-108); Estimated Glomerular Filt Rate 17; Potassium 5.6 mmol/L (3.3-5.1); Sodium 142 mmol/L (135-145)
[2024-10-29 08:04] LABS: Platelet Count 214 X10*3/uL (160-400); White Blood Count 12.7 X10*3/uL (4.8-10.8)
== END 2024-10-29 07:06 | disposition home or self-care (01) ==
LOC: HO.MMNH2L 07:05
PROVIDERS: Visit Provider Student in an Organized Health Care Education/Training Program
DX: S06.5XAA Traumatic subdural hemorrhage with loss of consciousness status unknown, initial encounter (principal)
CPT/HCPCS: 36415; 80048; 85025

== ENCOUNTER 2024-10-30 08:47 | Emergency (ER) | payer MEDICARE, MEDICAID, SELFPAY ==
[2024-10-30 08:53] VITALS: PULSE 0; BMI 18.5
--- NOTE | 2024-10-30 08:57 | ED.GENADULT ---
HPI - General Adult General Chief complaint: Cardiac Arrest/CPR Stated complaint: ASYSTOLE/PEA,COFFEE GROUND VOMIT,DNR/DNI PER EMS Source: EMS and old records reviewed Mode of arrival: EMS Limitations: other History of Present Illness ED Provider: ARTHUR VIEIRA narrative: 79 yo female from [facility] of DM, cerebral palsy, SDH - EMS states they were called for vomiting. On arrival BLS states pulses but staring off, pulses around 50. They noted coffee ground emesis. They called for ALS intercept en route. ALS noted agonal breathing and patient was not response at 837am patient was placed on monitor pulses not felt and she was in asystole. Since they were enroute she was brought to the hospital. On arrival to ED [facility] states DNR/DNI, no pulses, asystole, coffee ground emesis in mouth, cardiac standstill on arrival. MD complaint: UGIB, asystole Onset (ago): unknown Severity: severe Associated symptoms: denies other symptoms Treatments prior to arrival: none Related Data Allergies Allergy/AdvReac Type Severity Reaction Status Date / Time Unable to Assess Allergy Verified 10/30/24 08:58 Review of Systems Review of Systems: ROS unable to be obtained due to on arrival [facility] Past Medical History Source: old records reviewed Medical History SDH (subdural hematoma) Cerebral palsy Diabetes Social History Social History (Updated 10/30/24 @ 09:05 by Lisseth Clark DO) Patient Tobacco Use Status: Tobacco use Unknown Physical Exam ED Vital Signs: Vital Signs - 24 hr 10/30/24 08:53 Pulse Rate 0 L BMI result Body Mass Index 18.5 Appearance: no pulses on arrival, no response to stimuli, asystole on EMS monitor Eyes: Pupils fixed and dilated, no cornea response ENT: Pharynx coffee ground bloody emesis noted in mouth Neck: Normal inspection. . CVS: no pulses, no cap refill, cool to touch Respiratory: No respiratory effort at all on arrival, apneic Abdomen: distended Skin: pale and cool Extremities: No lower extremity edema. Neuro: unresponsive on arrival no response to stimula Course Course Course Narrative: left message on arrival for Wicho jimenez - next person listed has same number [phone] Procedures Procedure Narrative Procedure Narrative: limited bedside US on arrival - cardiac standstill in apical, parasternal, subxiphoid views. Medical Decision Making Medical Decision Making MDM Narrative: 79 yo female from [facility] hx of DM, cerebral palsy, SDH on arrival has no spont respirations, pupils are fixed and dilated, asystole on monitor, cardiac standstill on bedside ECHO - will honor [facility] and after discussion with EMS and strip review time of 837am. I have tried to reach out to the three individual family members but no response - messages left, PATRICIA aceves also called [facility] who had no additional numbers to call. Differential Diagnosis Differential Diagnoses: The differential diagnosis associated with the presentation includes UGIB, acute blood loss, dysthrythmia Admission/Observation Consideration of admission/observation: Escalation of care including admission/observation considered time of 837 as confirmed with asystole via EMS and no pulses, DNR/DNI form on arrival reviewed, time of 837 Independent Historian Clinical information obtained from an independent historian. History obtained from or confirmed by: EMS External Record Review External record reviewed: Outpatient record Discharge Plan Discharge Clinical Impression: Cardiac arrest Patient Disposition:
--- OUTSIDE RECORDS SUMMARY | 2024-10-30 10:41 | XMS_ITS | Clinical Summary ---
Author Organization [facility] Address [address] [address] Phone Care Team Providers Care Hand Polisher Name Role Phone Unavailable Primary Care Provider [...] file Insurance MEDICARE PART A & B [employer] MEDICARE PART A & B [place]IC[place] MED[place] PART A & B [employer] MEDIC[employer] PART A & B [place] MED[place]ARE PART A & B [employer] MEDICARE PART A & B [employer] MEDICARE PART A & B [facility] Additional Source Comments The information contained in this document represents components of the legal health record. It is not the complete legal health record.[facility]
--- OUTSIDE RECORDS SUMMARY | 2024-10-30 10:41 | XMS_ITS | Encounter Summary ---
Author Organization [employer] Address [address] [facility] [address] [place] [address] Care Team Providers Care Skilled Labor Name Role Phone Naida Umaña Primary Care [...] on filedocumented in this encounter Care Teams Skilled Labor Relationship Specialty Start Date End Date Naida Umaña FNP PCP - General Family Medicine 02/04/22 10/17/22 Alexia Jackson PA PCP - General Family Medicine 10/18/22 05/23/23 Inactive/Transferred PCP - General 05/24/23 Jaleesa Naqvi Community Health Worker Case Management 10/15/22 documented as of this encounter
--- OUTSIDE RECORDS SUMMARY | 2024-10-30 10:41 | XMS_ITS | Encounter Summary ---
Author Organization [employer] Address [address] [facility] [address] [place] [address] Care Team Providers Care Pitting Machine Operator Name Role Phone Naida Umaña [...] on filedocumented in this encounter Care Teams Pitting Machine Operator Relationship Specialty Start Date End Date Naida Umaña FNP PCP - General Family Medicine 02/04/22 10/17/22 Alexia Jackson PA PCP - General Family Medicine 10/18/22 05/23/23 Inactive/Transferred PCP - General 05/24/23 Jaleesa Naqvi Community Health Worker Case Management 10/15/22 documented as of this encounter
--- OUTSIDE RECORDS SUMMARY | 2024-10-30 10:41 | XMS_ITS | Encounter Summary ---
Author Organization [employer] Address [address] [facility] 7[address] [place] [address] Care Team Providers Care Hospital Ward Clerk Name Role Phone Naida Umaña Primary Care [...] on filedocumented in this encounter Care Teams Hospital Ward Clerk Relationship Specialty Start Date End Date Naida Umaña FNP PCP - General Family Medicine 02/04/22 10/17/22 Alexia Jackson PA PCP - General Family Medicine 10/18/22 05/23/23 Inactive/Transferred PCP - General 05/24/23 Jaleesa Naqvi Community Health Worker Case Management 10/15/22 documented as of this encounter
--- OUTSIDE RECORDS SUMMARY | 2024-10-30 10:41 | XMS_ITS | Clinical Summary ---
Author Organization [employer] Address [address] [facility] [address] [place] [address] Care Team Providers Care Business Systems Analyst Name Role Phone Inactive/Transferred Primary Care Provider Unava ilable Allergies No known active allergies Medications Calcium-Vitamin D-Vitamin K (Calcium + D) 500-1000-40 MG-UNT-MCG chewable tablet Orally Acti ve nystatin (Mycostatin) 208059 UNIT/GM powderIndications: Intertrigo apply 1 application Externally Twice a day for 14 days 30 g 2 02/05/20 22 Active glucose blood test stripIndications:T ype 2 diabetes mellitus with hyperglycemia, unspecified whether buttermaker insulin use ([facility]) 1 each by Other route [...] hyperglycemia, without long-term current use of insulin ([facility]) TAKE 1 TABLET BY MOUTH [...] a big deal. I contacted the police judge who was not available to assist us if there were any further incidents but he was not able to come and asked me to call the state police. I called dispatch and they sent a estate planning attorney to our facility. HR was able [...] & Plan (11/02/2022 12:06 PM EDT): Under multimedia designer care of her brother and sister in law at their home for >20y. Pt is unable to care for herself at all. She does have her own bedroom and bathroom, side by side. She attends an adult day care [id number] [phone]. Her ELMA states the pt has been [...] at appt today. The brother and primary adjunct professor of law would not discuss her medications with myself [...] Moderna Covid-19 Vaccine 12+ 01/08/2021,04/10/19 21,03/12/2020 Novel [id number], all formulations 03/19/2009 PPD Test 12/19/2015,05/14/2009 Pfizer [...] 2 diabetes mellitus with hyperglycemia, unspecified whether chcf insulin use (CMS/HCC) Other specified diabetes mellitus with unspecified complications ([facility]) ALBUMIN, RANDOM URINE W/CREATININE Routine [...] specimen / Unknown 06/07/2022 4:25 PM EDT [employer] [facility] POINT OF CARE TEST ENTER/ EDIT ORDERABLES Final Result * -Microalbumin, Urine (10/16/2021 8:46 AM EDT) Microalbumin Urine <12.0 (<20) MG/L [facility] Comment: The urine microalbumin test is designed to monitor renal function. When screening for Bence Acosta proteinuria, urine electrophoresis is recommended. Microalb/Creat Ratio Unable to calculate (0-20) MG/GM [facility] Creatinine, Urine 66.0 MG/DL [facility] 10/16/2021 8:46 AM EDT [employer] [facility] LAB URINE ORDERABLES Ethel l Result [facility] [address] * Lipid Panel, Standard (10/15/2021) Triglycerides 101 40 - 160 mg/dL Cholesterol 136 0 - 200 mg/dL HDL Cholesterol 53 35 - 70 mg/dL LDL Cholesterol 63 mg/dL Blood Venous blood specimen / Unknown [facility] Provider LAB BLOOD ORDERABLES Ethel l Result from Last 3 Months or Most Recently Relevant to Health Maintenance Insurance MEDICARE [facility] STANDARD DENTAL-[facility] MEDICAID STAND ADULT Care Teams Business Systems Analyst Relationship Specialty Start Date End Date Inactive/Transferred PCP - General 05/24/23 Jaleesa Naqvi Community Health Worker Case Management 10/15/22
--- OUTSIDE RECORDS SUMMARY | 2024-10-30 10:41 | XMS_ITS | Encounter Summary ---
Author Organization [employer] Address [address] [facility] [address] [place] [address] Care Team Providers Care Vessel Liner Name Role Phone Naida Umaña Primary Care [...] on filedocumented in this encounter Care Teams Vessel Liner Relationship Specialty Start Date End Date Naida Umaña FNP PCP - General Family Medicine 02/04/22 10/17/22 Alexia Jackson PA PCP - General Family Medicine 10/18/22 05/23/23 Inactive/Transferred PCP - General 05/24/23 Jaleesa Naqvi Community Health Worker Case Management 10/15/22 documented as of this encounter
--- NOTE | 2024-10-30 10:59 | PC.NURSE ---
no family has arrived or called the ED. [facility] bank called at this time.
--- NOTE | 2024-10-30 11:09 | PC.NURSE ---
declined by [facility] ref. [id number]
== END 2024-10-30 11:00 | disposition expired ==
PROVIDERS: Emergency Provider Emergency Medicine; PCP Student in an Organized Health Care Education/Training Program
DX: I46.9 Cardiac arrest, cause unspecified (principal)
CPT/HCPCS: 99282; 99284